=== PATIENT | female | born 1970 | race American Indian/Alaskan Native ===

== ENCOUNTER 2022-12-17 10:42 | Emergency (ER) | payer OTHER ==
[~2022-12-17] VITALS: Ht 167.6 cm; Wt 91.5 kg
[2022-12-17] MEDS ORDERED: BENZONATATE100 MG PO (11:21)
[2022-12-17 11:31] VITALS: BP 139/63
== END 2022-12-17 11:32 | disposition home or self-care (01) ==
LOC: ED 10:42
DX: U07.1 COVID-19 (principal)
CPT/HCPCS: 99283